=== PATIENT | female | born 1975 | race Caucasian/White ===

== ENCOUNTER 2019-01-11 20:01 | Emergency (ER) | payer MEDICARE, MEDICAID ==
[2019-01-11 20:07] VITALS: RESP 20; TEMP 97
[2019-01-11 20:37] VITALS: O2SAT 98
[2019-01-11 20:38] LABS: BASOPHILS % (AUTO) 1 % (0-3); EOSINOPHILS % (AUTO) 2 % (0-9); HEMATOCRIT 45 % (35-47); HEMOGLOBIN 14.9 gm/dl (12.0-15.5); LYMPHOCYTES % (AUTO) 29.7 % (10-50); MEAN CORPUSCULAR HEMOGLOBIN 30.7 pg (27.0-32.0); MEAN CORPUSCULAR VOLUME 93 fL (81-99); MONOCYTES % (AUTO) 7.6 % (0-12); NEUTROPHILS % (AUTO) 59.7 % (37-80)
[2019-01-11 21:05] LABS: ALBUMIN 3.5 gm/dl (3.4-5.0); ALKALINE PHOSPHATASE 80 IU/L (46-116); ALT 16 IU/L (14-63); AST 12 IU/L (15-37); BILIRUBIN,TOTAL 0.2 mg/dl (0.2-1.0); BLOOD UREA NITROGEN 11 mg/dl (7-18); CALCIUM 8.3 mg/dl (8.5-10.1); CARBON DIOXIDE 27.9 mEq/L (21-32); CHLORIDE 105 mMol/L (98-107); CREATININE 0.81 mg/dl (0.60-1.00); GLUCOSE 98 mg/dl (74-106); POTASSIUM 3.8 mMol/L (3.5-5.1); SODIUM 142 mMol/L (136-145); THYROID STIMULATING HORMONE 0.055 uIU/ml (0.358-3.740); TOTAL PROTEIN 6.4 gm/dl (6.4-8.2); TROP I < 0.017 ng/ml (0.000-0.056)
[2019-01-11 22:34] VITALS: BP 102/83; PULSE 57
== END 2019-01-11 22:20 | disposition home or self-care (01) | DRG 313 ==
LOC: ED 20:01
DX: R07.9 Chest pain, unspecified (principal); R06.02 Shortness of breath; R07.89 Other chest pain
CPT/HCPCS: 36415; 71045; 80053; 84443; 84484; 85025; 85378; 93005; 99284